=== PATIENT | male | born 1970 | race Caucasian/White ===

== ENCOUNTER 2016-05-13 13:33 | Outpatient (CLI) ==
--- NOTE | 2016-05-13 14:04 | DI ---
EXAM: Chest two views CLINICAL INDICATION: Cough. COMPARISON: None available. FINDINGS: PA and lateral views of the thorax are provided. The pulmonary parenchyma is clear and there is no pleural abnormality. There is some wedging of a m id to lower thoracic vertebra which could represent an age indeterminate wedge compression fracture. Otherwise, the cardiomediastinal silhouette and visualized bony structures are unremarkable. IMPRESSION: 1. No acute pulmonary abnormality. 2. Wedging of a mid to lower thoracic vertebra, which could represent an age indeterminate compress ion fracture.
== END 2016-05-13 13:34 | disposition home or self-care (01) ==
LOC: RAD 13:33
PROVIDERS: ATTEND Family Medicine
DX: R05 Cough (principal)

== ENCOUNTER 2016-10-08 11:34 | Outpatient (CLI) ==
--- NOTE | 2016-10-08 12:23 | US ---
EXAM: Ultrasound abdomen limited. HISTORY: Abdominal pain. COMPARISON: None. TECHNIQUE: Abdominal, real time with image documentation: limited (eg, single organ, quadrant, fol low-up) FINDINGS: The liver demonstrates increased parenchymal echogenicity without intrahepatic biliary di latation. Portal venous flow is normal in direction. The gallbladder is without shadowing stones, wall thickening or pericholecystic fluid. Common duct measures approximately 0.3 cm. Visualized po rtions of the pancreas are unremarkable. IMPRESSION: Fatty infiltration of the liver.
== END 2016-10-08 11:35 | disposition home or self-care (01) ==
LOC: RAD 11:34
PROVIDERS: ATTEND Family Medicine
DX: R10.11 Right upper quadrant pain (principal)

== ENCOUNTER 2016-10-11 08:33 | Outpatient (CLI) ==
--- NOTE | 2016-10-11 11:01 | NM ---
EXAM: Hepatobiliary imaging HISTORY: Right upper quadrant pain COMPARISON: Limited abdominal ultrasound on 10/08/2016 showed fatty liver. TECHNIQUE: Patient was injected 5.2 mCi of technetium 99m Choletec intravenously. Multiple anterior scintigraphic images of the right upper quadrant region of the abdomen were obtained up to 1 hour i nterval. Patient was infused 2 mcg of cholecystokinin intravenously and gallbladder ejection fracti on was calculated. FINDINGS: There is normal visualization of liver, gallbladder, bile duct and small bowel loops. Gal lbladder ejection fraction is 50%. IMPRESSION: Normal study
== END 2016-10-11 08:34 | disposition home or self-care (01) ==
LOC: RAD 08:33
PROVIDERS: ATTEND Family Medicine
DX: R10.11 Right upper quadrant pain (principal)

== ENCOUNTER → 2017-11-06 | Outpatient (REF) | LOC: LAB 10:30 | DX: Z02.89 Encounter for other administrative examinations (principal) | CPT/HCPCS: 36415; 80053; 80061; 83036; 83540; 84100; 84550; 85025; 86140 ==